=== PATIENT | female | born 1940 | race Caucasian/White ===

== ENCOUNTER 2016-08-24 11:19 | Emergency (ER) | payer MEDICARE, OTHER ==
[2016-08-24] MEDS ORDERED: Sodium Chloride 0.9% 1,000 ML IV SCH (14:00)
[2016-08-24] MEDS ORDERED: Iopamidol 755 Mg/ML 100 ML Bottle IV SCH (14:00)
[2016-08-24] MEDS ORDERED: Sodium Chloride 0.9% 90 ML IV SCH (14:00)
[2016-08-24] MEDS: Sodium Chloride 0.9% 10 ML Syringe FLUSH ONE ×2 (14:02→14:12)
--- NOTE | 2016-08-24 14:05 | EDM.PDOC ---
ED HISTORY OF PRESENT ILLNESS - General Chief Complaint: Respiratory Problem Stated Complaint: SHORTNESS OF BREATH Time Seen by Provider: 08/24/16 12:05 Source: Reports: Patient History Limitations: Reports: No limitations - History of Present Illness INITIAL COMMENTS - FREE TEXT/NARRATIVE: 75 yr old female reporting 1 day hx of activity intolerance due to shortness of breath. No fever or other cold symptoms; endorses scant nasal drainage, clear in nature. Recently traveled 4 days to [place] from [place] by car. Denies leg swelling, warmth or redness at that time. Pt has hx of thrombophlebitis-2008 , superficial in nature, which resolved without further concerns. Wears MARGARET stockings while traveling and stops ever 2 hours to ambulate around the car. 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 Placed on and continues on altace and coreg at that time. Placed on aldactone for diuretic therapy in 2014 due to an 'increased heart pressure' but unsure of type of pressure which was increased. Symptom Onset Date: 08/23/16 Timing/Duration: Reports: Day(s): Severity: mild Quality: Denies: Ache, Burning, Dull, Pressure Improves with: Reports: Rest Context, General: Reports: Activity Associated Symptoms: Denies: chest pain, cough, diaphoresis, fever/chills, syncope - Related Data Allergies/ADRs: Allergies Allergy/AdvReac Type Severity Reaction Status Date / Time codeine Allergy Nausea Verified 08/24/16 11:39 Home Meds: Home Meds Aspirin [Adult Low Dose Aspirin EC] 81 mg PO DAILY 08/24/16 [History] Calcium Carbonate [Calcium] 600 mg PO BID 08/24/16 [History] Carvedilol [Coreg] 25 mg PO BID 08/24/16 [History] Ergocalciferol (Vitamin D2) [Vitamin D] 400 unit PO DAILY 08/24/16 [History] Meloxicam 15 mg PO DAILY 08/24/16 [History] Ramipril [Altace] 5 mg PO DAILY 08/24/16 [History] Spironolactone [Aldactone] 25 mg PO DAILY 08/24/16 [History] atorvaSTATin Calcium [Atorvastatin Calcium] 1 tab PO BEDTIME 08/24/16 [History] Past Medical History HEENT History: Reports: Cataract, Impaired vision, Other (see below) Other HEENT History: floaters Cardiovascular History: Reports: High cholesterol, Other (see below) Other Cardiovascular History: enlarged heart 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: , Spontaneous , Other (see below) Other OB/BYN History: lumpectomy l breast Oncologic (Cancer) History: Reports: Breast - Infectious Disease History Infectious Disease History: Reports: Chicken pox, Measles, Mumps - Past Surgical History GI Surgical History: Reports: Appendectomy, Colonoscopy, Other (see below) Other GI Surgeries/Procedures: hemorrhoidectomy Endocrine Surgical History: Reports: Other (see below) Other Endocrine Surgeries/Procedures: Lump removal from thyroid Social & Family History - Tobacco Use Smoking Status *Q: Never Smoker Second Hand Smoke Exposure: No - Caffeine Use Caffeine Use: Reports: Soda, Tea - Recreational Drug Use Recreational Drug Use: No - Living Situation & Occupation Living situation: Reports: Occupation: retired Social History Comment: Resides in [place] and graf in [place] ED ROS GENERAL - Review of Systems Review Of Systems: See Below Constitutional: Reports: no symptoms HEENT: Reports: Other (scant clear drainage) Respiratory: Reports: Shortness of Breath. Denies: Wheezing, Pleuritic Chest Pain, Cough, Sputum, Hemoptysis Cardiovascular: Reports: Dyspnea on exertion Endocrine: Reports: no symptoms GI/Abdominal: Reports: No symptoms : Reports: no symptoms Musculoskeletal: Reports: leg pain (left lower extremity pain, known L5 disc bulge) Skin: Reports: no symptoms Neurological: Reports: No Symptoms Psychiatric: Reports: No symptoms Hematologic/Lymphatic: Reports: no symptoms Immunologic: Reports: no symptoms ED EXAM, GENERAL - Physical Exam Exam: See Below Exam Limited By: No limitations General Appearance: alert, no apparent distress (able to carry on full conversation without shortness of breath noted. Speaks full sentences without stopping.) Eye Exam: bilateral eye: other (Glasses) Ears: normal external exam, normal TMs Nose: normal inspection Throat/Mouth: Normal inspection, Normal lips, Normal teeth, Normal oropharynx, Normal voice, No airway compromise Head: atraumatic Neck: normal inspection, supple Respiratory/Chest: no respiratory distress, lungs clear, normal breath sounds, no accessory muscle use. No: crackles, rales, rhonchi, wheezing, stridor Cardiovascular: regular rate, rhythm, no murmur Peripheral Pulses: 3+: dorsalis pedis (L), dorsalis pedis (R) GI/Abdominal: normal bowel sounds Back Exam: normal inspection, full range of motion Extremities: normal inspection, normal range of motion (sits for exam and moves freely on exam table), no pedal edema, normal capillary refill Neurological: alert, oriented, normal cognition, normal gait Psychiatric: normal affect, normal mood Skin Exam: Warm, Dry, Intact, Normal color, No rash EKG INTERPRETATION EKG Date: 08/24/16 Time: 15:49 Rhythm: NSR [place]: normal P-wave: present QRS: normal ST-T: normal QT: normal Comparison: NA - no prior EKG Course - Vital Signs Last Recorded V/S: Last Vital Signs Temp 35.6 C 08/24/16 11:52 Pulse 88 08/24/16 12:17 Resp 16 08/24/16 12:17 BP 121/82 08/24/16 12:17 Pulse Ox 96 08/24/16 12:17 - Orders/Labs/Meds Orders: Active Orders 24 hr Category Date Time Status EKG Documentation Completion [RC] ASDIRECTED Care 08/24/16 14:35 Active Iopamidol [Isovue-370 (76%)] Med 08/24/16 14:00 Active 100 ml IV . DIRECTED Sodium Chloride 0.9% [Normal Saline] 1,000 ml Med 08/24/16 14:00 Active IV ASDIRECTED Sodium Chloride 0.9% [Normal Saline] 90 ml Med 08/24/16 14:00 Active IV ASDIRECTED EKG 12 Lead [EK] Routine Ther 08/24/16 14:35 Ordered Medication Orders Sodium Chloride (Normal Saline) 1,000 mls @ 1,000 mls/hr IV ASDIRECTED MARCIA Last Admin: 08/24/16 14:21 Dose: 1,000 mls/hr Sodium Chloride (Normal Saline) 90 mls @ 4 mls/sec IV ASDIRECTED MARCIA Last Admin: 08/24/16 14:12 Dose: 4 mls/sec Iopamidol (Isovue-370 (76%)) 100 ml IV . DIRECTED MARCIA Last Admin: 08/24/16 14:13 Dose: 100 ml Labs: Laboratory Tests 08/24/16 08/24/16 08/24/16 Range/Units 12:25 12:25 12:25 WBC 11.5 H (4.5-11.0) K/uL RBC 4.66 (3.30-5.50) M/uL Hgb 13.4 (12.0-15.0) g/dL Hct 40.5 (36.0-48.0) % MCV 87 (80-98) fL MCH 29 (27-31) pg MCHC 33 (32-36) % Plt Count 222 (150-400) K/uL Neut % (Auto) 80 H (36-66) % Lymph % (Auto) 12 L (24-44) % [place] % (Auto) 6 (2-6) % Eos % (Auto) 2 (2-4) % Baso % (Auto) 0 (0-1) % PT (9.5-12.0) sec INR (0.80-1.20) APTT (27.0-36.0) sec D-Dimer, Quantitative 3930 H (0.0-400.0) ng/mL Sodium (140-148) mmol/L Potassium (3.6-5.2) mmol/L Chloride (100-108) mmol/L Carbon Dioxide (21-32) mmol/L Anion Gap (5.0-14.0) mmol/L BUN (7-18) mg/dL Creatinine (0.6-1.0) mg/dL Est Cr Clr Drug Dosing mL/min Estimated GFR (MDRD) (>60) Glucose (74-106) mg/dL Calcium (8.5-10.1) mg/dL Troponin I < 0.017 (0.000-0.056) ng/mL Urine Color Urine Appearance Urine pH (4.5-8.0) Ur Specific [place] (1.008-1.030) Urine Protein (NEGATIVE) mg/dL Urine Glucose (UA) (NEGATIVE) mg/dL Urine Ketones (NEGATIVE) mg/dL Urine Occult Blood (NEGATIVE) Urine Nitrite (NEGATIVE) Urine Bilirubin (NEGATIVE) Urine Urobilinogen (NORMAL) mg/dL Ur Leukocyte Esterase (NEGATIVE) Urine RBC (0-5) Urine WBC (0-5) Ur Epithelial Cells Amorphous Sediment Urine Bacteria Urine Mucus 08/24/16 08/24/16 08/24/16 Range/Units 13:29 14:40 15:50 WBC (4.5-11.0) K/uL RBC (3.30-5.50) M/uL Hgb (12.0-15.0) g/dL Hct (36.0-48.0) % MCV (80-98) fL MCH (27-31) pg MCHC (32-36) % Plt Count (150-400) K/uL Neut % (Auto) (36-66) % Lymph % (Auto) (24-44) % [place] % (Auto) (2-6) % Eos % (Auto) (2-4) % Baso % (Auto) (0-1) % PT 10.3 (9.5-12.0) sec INR 0.97 (0.80-1.20) APTT 25.4 L (27.0-36.0) sec D-Dimer, Quantitative (0.0-400.0) ng/mL Sodium 141 (140-148) mmol/L Potassium 4.9 (3.6-5.2) mmol/L Chloride 105 (100-108) mmol/L Carbon Dioxide 28 (21-32) mmol/L Anion Gap 8.5 (5.0-14.0) mmol/L BUN 22 H (7-18) mg/dL Creatinine 1.2 H (0.6-1.0) mg/dL Est Cr Clr Drug Dosing 37.92 mL/min Estimated GFR (MDRD) 44 L (>60) Glucose 107 H (74-106) mg/dL Calcium 8.7 (8.5-10.1) mg/dL Troponin I (0.000-0.056) ng/mL Urine Color Yellow Urine Appearance Clear Urine pH 6.5 (4.5-8.0) Ur Specific [place] 1.010 (1.008-1.030) Urine Protein Negative (NEGATIVE) mg/dL Urine Glucose (UA) Normal (NEGATIVE) mg/dL Urine Ketones Negative (NEGATIVE) mg/dL Urine Occult Blood Negative (NEGATIVE) Urine Nitrite Negative (NEGATIVE) Urine Bilirubin Negative (NEGATIVE) Urine Urobilinogen Normal (NORMAL) mg/dL Ur Leukocyte Esterase Negative (NEGATIVE) Urine RBC 0-5 (0-5) Urine WBC Not seen (0-5) Ur Epithelial Cells Rare Amorphous Sediment Not seen Urine Bacteria Not seen Urine Mucus Not seen Meds: Medications Generic Name Dose Route Start Last Admin Trade Name Freq PRN Reason Stop Dose Admin Sodium Chloride 1,000 mls @ 1,000 mls/hr 08/24/16 14:00 08/24/16 14:21 Normal Saline IV 1,000 mls/hr ASDIRECTED MARCIA Administration Sodium Chloride 90 mls @ 4 mls/sec 08/24/16 14:00 08/24/16 14:12 Normal Saline IV 4 mls/sec ASDIRECTED MARCIA Administration Iopamidol 100 ml 08/24/16 14:00 08/24/16 14:13 Isovue-370 (76%) IV 100 ml . DIRECTED MARCIA Administration Discontinued Medications Generic Name Dose Route Start Last Admin Trade Name Freq PRN Reason Stop Dose Admin Enoxaparin Sodium 120 mg 08/24/16 15:15 08/24/16 15:41 Lovenox SUBCUT 08/24/16 15:16 120 mg ONETIME ONE Administration Sodium Chloride 10 ml 08/24/16 13:52 08/24/16 14:12 Saline Flush FLUSH 08/24/16 13:53 10 ml ONETIME ONE Administration Warfarin Sodium 5 mg 08/24/16 15:15 08/24/16 15:41 Coumadin PO 08/24/16 15:16 5 mg ONETIME ONE Administration - Radiology Interpretation Free Text/Narrative:: Bilateral pulmonary emboli present with official report in record. - Re-Assessments/Exams Free Text/Narrative Re-Assessment/Exam: 08/24/16 14:[address] Ndiaye, ER attending. Pt reports subjective shortness of breath for 24 hours duration. CBC, D dimer and troponin ordered after discussion with pt. D dimer elevation noted and subsequent BMP ordered. Elevation of creatinine from patient's baseline of 1.0 noted to 1.2. Care reviewed again with Dr. Ndiaye and hydrate with 1L of normal saline prior to CT scan of chest with PE protocol. Pt agreeable. Free Text/Narrative Re-Assessment/Exam: 08/24/16 15:[address] Tc Bianchi, hospitalist, and recommendations for subcu lovenox and starting PO warfarin with outpatient Coumadin Clinic followup. Discussed with pt and she is willing to self-injection and understands the process. Followup requests for both Coumadin Clinic and for pt to establish care with a Primary Care Provider requested. Departure - Departure Time of Disposition: 16:28 Disposition: Home, Self-Care 01 Condition: fair Clinical Impression: Elevated d-dimer, Short of breath on exertion, Anticoagulation management encounter Pulmonary emboli Qualifiers: Pulmonary embolism type: other Chronicity: unspecified Instructions: Warfarin: What You Need to Know, Warfarin tablets, Pulmonary Embolism, How and Where to Give Subcutaneous Injections Using a Prefilled Syringe Referrals: PCP,None [Primary Care Provider] - Forms: ED Department Discharge Additional Instructions: 1. You have blood clots in your lungs. 2. You are being started on Lovenox (low molecular weight heparin injections) and Warfarin (tablet blood thinning medication) today. 3. A followup appointment for the Coumadin Clinic has been scheduled at 1:45pm on August 25. You will also need an appointment with a Primary Care Provider for followup. 4. You will have an increased risk of bleeding while taking these medications. 5. Return to the ER if you develop new symptoms, increased shortness of breath, uncontrolled bleeding, falls with injuries as discussed at time of discharge. - Problem List & Annotations (1) Elevated d-dimer SNOMED Code(s): 946020788 Code(s): R79.89 - OTHER SPECIFIED ABNORMAL FINDINGS OF BLOOD CHEMISTRY Status: Acute Priority: High Current Visit: Yes (2) Pulmonary emboli SNOMED Code(s): 34941415, 58125600 Code(s): I26.99 - OTHER PULMONARY EMBOLISM WITHOUT ACUTE COR PULMONALE Status: Acute Priority: High Current Visit: Yes Qualifiers: Pulmonary embolism type: other Chronicity: unspecified (3) Short of breath on exertion SNOMED Code(s): 65461348 Code(s): R06.02 - SHORTNESS OF BREATH Status: Acute Priority: High Current Visit: Yes - Problem List Review Problem List Initiated/Reviewed/Updated: Yes - My Orders Last 24 Hours: My Active Orders 08/24/16 14:00 Sodium Chloride 0.9% [Normal Saline] 1,000 ml IV ASDIRECTED 08/24/16 14:35 EKG Documentation Completion [RC] ASDIRECTED EKG 12 Lead [EK] Routine - Assessment/Plan Last 24 Hours: My Active Orders 08/24/16 14:00 Sodium Chloride 0.9% [Normal Saline] 1,000 ml IV ASDIRECTED 08/24/16 14:35 EKG Documentation Completion [RC] ASDIRECTED EKG 12 Lead [EK] Routine
--- NOTE | 2016-08-24 14:31 | CT ---
Ang Chest HISTORY: Intraoperative pulmonary embolism. Elevated d-dimer. Shortness of breath. COMPARISON: None TECHNIQUE: Intravenous contrast was administered, followed by axial imaging from the lung apices ext ending through the hemidiaphragms. 3D Coronal and/or sagittal MIP reconstructions were obtained and reviewed. Total DLP: 388. FINDINGS: Bilateral pulmonary emboli are demonstrated. There is clot demonstrated within the right m ain and right segmental branches to the right middle and right lower lobes. There is clot extending into the segmental right upper lobe pulmonary artery as well. There are clots on the left within the segmental and subsegmental branches of the left upper and left lower lobes. There are no infiltrates or effusions. There is a small focal density in the posterior right lung ba se. Finding may reflect mild atelectasis. A pulmonary infarct cannot be excluded. Limited evaluation of the upper abdomen demonstrates no acute findings. Impression: 1. Bilateral pulmonary embolism. ED physician notified of critical findings at time of dictation.
[2016-08-24] MEDS ORDERED: Warfarin 5 MG Tab PO ONE (15:15)
[2016-08-24] MEDS ORDERED: Enoxaparin 120 MG/0.8 ML Syringe SUBCUT ONE (15:15)
[2016-08-24 16:59] VITALS: BP 131/72
== END 2016-08-24 17:50 | disposition home or self-care (01) ==
LOC: JP.ED 11:19
DX: R06.02 Shortness of breath (principal); R79.89 Other specified abnormal findings of blood chemistry; I26.99 Other pulmonary embolism without acute cor pulmonale; E78.00 Pure hypercholesterolemia, unspecified; Z85.3 Personal history of malignant neoplasm of breast; Z79.82 Long term (current) use of aspirin; Z79.899 Other long term (current) drug therapy; Z88.5 Allergy status to narcotic agent; Z90.49 Acquired absence of other specified parts of digestive tract; Z98.890 Other specified postprocedural states
CPT/HCPCS: 36415; 71275; 80048; 81001; 84484; 85025; 85379; 85610; 85730; 93005; 93010; 96360; 99284; 99285; A9270; J1650; J7030; J7050; Q9967